=== PATIENT | male | born 1940 | race Caucasian/White ===

== ENCOUNTER 2019-03-16 06:56 | Inpatient (IN) ==
--- NOTE | 2019-03-11 13:33 | Anesthesiology Consultation ---
Date of Service March 11, 2019 Assessment & Plan (1) Encounter for pre-operative examination: Chart Review Chart Review: Acceptable Risk for Surgery and Patient seen in Pre Admission Testing Teaching & Discussion Instructed NPO after midnight before surgery, except medications with 15 cc of water. Medication instructions provided according to the PAT guidelines. 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 CURRENTLY NOT ON ANY MEDICATIONS Exercise / Class Metabolic Activity II 4-5 Yardwork/Stairs/Walk up hill (Denies CP and SOB with stairs) Past Surgical History Surgical History H/O esophagogastroduodenoscopy History of herniorrhaphy Past Anesthesia History No Hx of Anesthesia Complications and No Family Hx of Anesthesia Complications HAS NEVER HAD GA--HERNIA REPAIR WAS LOCAL ANESTHESIA ONLY, EGD WITH SEDATION. History of PONV No Hx of PONV and No Hx of Motion Sickness Social History Smoking Status: Former smoker tobacco type: cigarettes Smoking cigarettes per day: "SMOKED A TEEN" Do You Dip or Chew Tobacco: No Hx Alcohol Use: No Alcohol Intake Frequency Comment: 0 Hx Substance Use: No substance use type: does not use Review of Systems Pt denies any recent chest pain, shortness of breath, palpitations, fever or URI. Mild occ cough at baseline. Physical Exam Vital Signs BP: 163/80 (PCP monitoring BP) P: 72bpm SPO2: 96% RA T: 97.8 F R: 16 Constitutional + obese ENMT Mouth: + poor dentition (several broken all around mouth, several front upper); no dental restorations and no loose teeth Thyromental Distance: > or= 3.5 Finger Breadths (3.5) Mallampati Class: I Neck + short neck; neck extension not limited Respiratory normal respiratory effort Auscultation: lungs clear to auscultation bilaterally Cardiovascular Rate/Rhythm: regular rate and regular rhythm Heart Sounds: no murmur Vessels: no carotid bruit Extremities: no edema Testing Electrocardiogram Date: 03/11/19 Findings: + NSR @ (67) Chest X-Ray Date: 03/11/19 Findings: + NAD Laboratory Results 03/11/19 13:45 03/11/19 13:45 Blood Type O Positive 03/11/19 13:45 Antibody Screen NEGATIVE 03/11/19 13:45 *surgeon made aware of elevated glucose (no known h/o DM)
--- NOTE | 2019-03-11 14:08 | XRay Report ---
XR chest Pre-admission PA/Lat CLINICAL HISTORY: pat COMPARISON STUDY: No previous studies for comparison. FINDINGS: The bones soft tissues and hemidiaphragms are normal. The cardiomediastinal silhouette is n ormal. The lungs are clear. The pulmonary vasculature is normal. IMPRESSION: Negative chest. The above report was generated using voice recognition software. It may contain grammatical, syntax or spelling errors. Electronically signed by: Donn Harrell M.D. 03/11/2019 2:07 PM
[2019-03-11 14:44] LABS: Basophils # (auto) 0.03 K/uL (0-0.2); Basophils % (auto) 0.4 %; Eosinophils # (auto) 0.16 K/uL (0-0.5); Eosinophils % (auto) 2.1 %; Hematocrit (blood only) 40.9 % (42-52); Hemoglobin 14.2 g/dL (14.0-18.0); Immature Granulocytes # (auto) 0.02 K/uL (0.00-0.02); Immature Granulocytes % (auto) 0.3 %; Lymphocytes # (auto) 1.98 K/uL (1.2-3.4); Lymphocytes % (auto) 26.2 %; Mean Corpuscular Hgb Conc 34.7 g/dL (32-36); Mean Corpuscular Volume 92.5 fL (80-100); Mean Platelet Volume 10.2 fL (7.4-10.4); Monocytes % (auto) 7.9 %; Neutrophils # (auto) 4.76 K/uL (1.4-6.5); Neutrophils % (auto) 63.1 %; Platelet Count 156 K/uL (130-400); RDW Coefficient of Variation 13.7 % (11.5-14.5); RDW Standard Deviation 46.2 fL (36.4-46.3); Red Blood Count 4.42 M/uL (4.7-6.1); White Blood Count 7.55 K/uL (4.8-10.8)
[2019-03-11 15:02] LABS: BUN Creatinine Ratio 15.8 (10-20); Calcium 9.3 mg/dl (8.5-10.1); Creatinine Clr Calc Pharmacy 65.9 ml/min; Est GFR (African American) 79.3; Est GFR (Non-African American) 68.4; Potassium 4.3 mmol/L (3.5-5.1)
[~2019-03-16 06:56] MED LIST: LR 15ML/HR IV SCH
--- OUTSIDE RECORDS SUMMARY | 2019-03-16 07:00 | External Medical Summary | Continuity of Care Document ---
:1940 Author Name Anthony Palomo, Provider Address Unavailable Unavailable , Care Team Providers Name Role Phone Faustino Yang M.D. 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 Sta rt: 03-Mar-2019 Refills: 0 Neomycin Sulfate 500 MG Oral Tablet; Matt e two tablets at 2:00, 4:00 and 10:00 the day before surgery Dewey Yang Start: 03-Mar-2019 Quantity: 6 Refills: 0 Procedures History of Hernia Repair Status: Complet ed Immunizations Immunizations not documented Family History Mother No pertinent family history (V49.89) (Z78.9) Status: Active Father No pertinent family history (V49.89) (Z78.9) Status: Active Social History - Smoking Status Never smoker Plan of Treatment Planned Encounters Appointment; Faustino Yang M.D. Start: 16-Mar-2019 7 :15 Request Planned Observations Planned Goals not documented Results No Known Results Results not documented Vital Signs 03-Mar-2019 8:39 Systolic 164 mm[Hg] Diastolic 62 mm[Hg] Respiration 20 /min Encounters Appointment; Faustino Yang M.D. 03-Mar-2019 8:40 Encounter Diagnosis: Problem not documented Appointment; Faustino Yang M.D. 15-Feb-2019 14:10 Encounter Diagnosis: Problem not documented Appointment; Faustino Yang M.D. 22-Jan-2019 10:40 Encounter Diagnosis: Problem not documented Appointment; Faustino Yang M.D. 20-Jan-2019 10:50 Encounter Diagnosis: Problem not documented Appointment; Faustino Yang M.D. 16-Mar-2019 7:15 Encounter Diagnosis: Problem not documented
--- NOTE | 2019-03-16 08:13 | History & Physical Bridge Note ---
Date of Service March 16, 2019 History & Physical Bridge Note I have examined the patient, reviewed the History & Physical and in the interval since the performance of the History & Physical I have noted the following changes of clinical significance: no changes noted SO at bedside all questions answered
[2019-03-16] MEDS ORDERED: PROPOFOL IV EMULSION 10 MG/ML 20 ML VIAL IV ONE (08:15)
[2019-03-16] MEDS ORDERED: GLYCOPYRROLATE 0.2 MG/ML VIAL ONE ×2 (08:15→11:14)
[2019-03-16] MEDS ORDERED: ONDANSETRON INJ 2 MG/ML 2 ML VIAL ONE (08:15)
[2019-03-16] MEDS ORDERED: NEOSTIGMINE METHYLSULFATE 5 MG/5 ML SYR ONE (08:15)
[2019-03-16] MEDS ORDERED: DEXAMETHASONE SOD INJ 4 MG/ML VIAL ONE (08:15)
[2019-03-16] MEDS ORDERED: LIDOCAINE HCL 2% 2 ML VIAL/AMP(20MG/ML) INFIL ONE (08:15)
[2019-03-16] MEDS ORDERED: ROCURONIUM BROMIDE 10 MG/ML 5 ML VIAL ONE (08:15)
[2019-03-16] MEDS ORDERED: MIDAZOLAM HCL 1 MG/ML 2ML VIAL ONE (08:16)
[2019-03-16] MEDS ORDERED: fentaNYL citrate 100 MCG/2 ML VIAL ONE ×2 (08:16→09:02)
[2019-03-16] MEDS ORDERED: BUPIVACAINE 0.5 % 5 MG/1 ML MPF 30ML VIAL ONE (08:18)
[2019-03-16] MEDS ORDERED: HYDROmorphone INJ 2 MG/ML SYR/VIAL IV PRN (08:33)
[2019-03-16] MEDS ORDERED: fentaNYL citrate 100 MCG/2 ML VIAL IV PRN (08:33)
[2019-03-16] MEDS ORDERED: ePHEDrine sulfate 50 MG/ML AMP IV PRN (08:33)
[2019-03-16] MEDS ORDERED: KETOROLAC 30 MG/ML VIAL IV PRN (08:33)
[2019-03-16] MEDS ORDERED: ATROPINE SULFATE 0.1 MG/ML 10ML SYR IV PRN (08:33)
[2019-03-16] MEDS ORDERED: DEXAMETHASONE SOD INJ 4 MG/ML VIAL IV PRN (08:33)
[2019-03-16] MEDS ORDERED: ONDANSETRON INJ 2 MG/ML 2 ML VIAL IV PRN ×2 (08:33→13:14)
[2019-03-16] MEDS ORDERED: cefOXitin 2,000 MG in DEXTROSE 5% 50 ML IV SCH (09:15)
[2019-03-16] MEDS ORDERED: CISATRACURIUM BESYLATE IV SOLN 2 MG/ML 10 ML VIAL IV ONE (09:59)
[2019-03-16] MEDS ORDERED: ALBUMIN HUMAN 5% 12.5 GM/250 ML VIAL IV ONE (10:55)
[2019-03-16] MEDS ORDERED: HYDROmorphone INJ 2 MG/ML SYR/VIAL ONE (11:12)
--- NOTE | 2019-03-16 11:25 | Post Operative Brief Note ---
Immediate Post Op Note v1 Date of Surgery March 16, 2019 Pre & Post Diagnosis Operation Date: 03/16/19 08:40 Pre-Op Diagnosis: Entero-colonic Fistula Post-Op Diagnosis: Entero-colonic Fistula Procedure Operation Date: 03/16/19 08:40 Actual Procedures p Laparoscopic-Assisted Resection Enterocutaneous Fistula, Extensive lysis of a carolsihanane Yang MD Surgeon Faustino Yang MD Promotions Representative aretha mccormack Estimated Blood Loss 200 Findings Consistent with Post-Op Diagnosis Drains Magan Drain (19 magan drain), Bosch Catheter and Alexis Drain (1/2 inch)
--- NOTE | 2019-03-16 11:49 | Operative Report ---
Post Operative Report Pre & Post Diagnosis Operation Date: 03/16/19 08:40 Pre-Op Diagnosis: Entero-colonic Fistula Post-Op Diagnosis: Entero-colonic Fistula Procedure Operation Date: 03/16/19 08:40 Actual Procedures p Laparoscopic-Assisted Resection Enterocutaneous Fistula, Extensive lysis of adhesions - Faustino Yang MD This 78-year-old gentleman has had about 3 to 4-month history of drainage of purulent material from her umbilical area at times is associated with some passage of air he denies any dysuria was worked up by CAT scan and found to have inflammation of the sigmoid colon with possibly extension down towards the bladder and inferior umbilical area question of a radical cyst was raised when I saw him 2 months ago the patient really did not have any changes in bowel habits he was always complaining of some pain in the left side had a inguinal hernia repair in the past and not had colonoscopy I did obtain a fistulogram which showed contrast from the umbilicus going into sigmoid colon a presumptive diagnosis was 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 with secondary inflammatory response possibly onto the bladder we did not pursue colonoscopy since with the air and drainage from the umbilical area and felt that this possibly was a contraindication from the GI service Today under general anesthesia the patient was placed in supine position a Bosch catheter was inserted systemic antibiotics given patient was identified and a timeout was had made a small incision supraumbilically enough to place a Veress needle followed by CO2 followed by 5 mm trocar block achieved from the trocar entry site below the umbilical area towards the symphysis pubis there was hard mass that was nonfluctuant suspicious for chronic inflammation of the rectus then I went down into what I can see the sigmoid colon stuck to this mass there was no evidence of any small bowel attachments to any of this area and there was no significant edema that I can appreciate cul-de-sac at this point I felt the best avenue to be to convert to an open procedure which we did make a supra pubic incision deepened through subcutaneous tissue on the preperitoneal area w ith 5 some indurated tissue from the umbilical slide going towards the bladder we freed that circumferentially from the posterior rectus sheath and anterior to the level of the umbilicus actually we inverted the umbilicus to resect this area from method into the granulation tissue and we followed this down onto where it expands around to the bladder dome and also the sigmoid colon in the area Bookwalter retractor was then inserted we divided the white line of Toldt on the left side mobilized the sigmoid colon to one area that we could see the start of the diverticular problem the sigmoid colon down towards the rectum was stuck to the dome of the bladder very hard indurated tissue most of the time we did with blunt dissection occasionally sharp dissection as fluid we freed this up we then were able to identify that abdominal bilateral posteriorly there was an opening with some evidence that we were in the bladder and also the sigmoid which showed nephroscopy a diverticulum we freed these 2 avenues up the indurated tissue around that area of which was the bladder musculature was sent for frozen section raised the possibility that this could be a malignant rectal cyst was hard to tell what our findings at this time whether or not this was a perforated sigmoid diverticulum that gone to the bladder or vice versa and said that we completely mobilized the proximal sigmoid down to the rectum dividing the mesentery with 22 oh silks completely we identified the left ureter avoided placed on a vessel loop we then resected proximally at the takeoff of the sigmoid with a NABIL stapler and we resected the sigmoid right on top of the rectum I placed a right angle clamp with our findings we then asked urology to command and evaluate the bladder for possible resection since but palpated area once we remove the sigmoid colon was extending about four 5 cm into the dome of the bladder and we can palpate her through Dr. Whitman came in and resected the area of the bladder and they will dictate that portion while we are waiting for the resection of the bladder we did a side and anastomosis by first oversewn the sigmoid bladder resection approximately 3-0 interrupted silk suture and so this to the end of the rectum with 3-0 silk are layer 3-0 chromic limit in her layer anastomosis was patent. Throughout the procedure we had moderate amount of oozing especially due to this chronic inflammation down the pelvis. We lost about 200 cc of blood once the bladder was resected we then closed the wound by first placing a Magan drain Prostaphlin left lower quadrant down the cul-de-sac attached to skin edge with 2-0 silk lower midline incision was closed with 905 chromic for the peritoneum and posterior rectus and interrupted #1 PDS [id number] for the anterior rectus 5/8 of an inch [place] subcutaneously touch the individual silk and kira for skin edges the umbilical area was left pretty much of unattended dressing was applied procedure was tolerated well by the patient taken recovery in good condition Sommer MCCORMACK present throughout the procedure and help with retraction exposure wound closure Surgeon Faustino Yang MD Logistics Administrator aretha mccormack Estimated Blood Loss 200 Findings Consistent with Post-Op Diagnosis Specimens sigmoid colon, urinary bladder Description of Procedure merda I attest to the content of the Intraoperative Record and any orders documented therein. Any exceptions are noted below.
--- NOTE | 2019-03-16 13:06 | Operative Report ---
Post Operative Report Pre & Post Diagnosis Operation Date: 03/16/19 08:40 Pre-Op Diagnosis: Entero-colonic Fistula Post-Op Diagnosis: Entero-colonic Fistula Procedure Operation Date: 03/16/19 08:40 Actual Procedures s Laparoscopy(Not Applicable) - Faustino Yang MD p open sigmoid resection (Not Applicable) - Faustino Yang MD s excision of urachal cyst/partial cystectomy by Dr Whitman(Not Applicable) - Jose Whitman MD Surgeon Jeremiah Whitman MD Oil Field Worker aretha mccormack Estimated Blood Loss 200 Findings Consistent with Post-Op Diagnosis Specimens Dome of bladder Description of Procedure I was called into the room by Dr. Yang secondary to an abnormal mass in the posterior aspect of the bladder and concern for urachal remnant. Of note, the patient previously had purulent drainage per umbilicus with a fistulagram showing communication to the sigmoid colon. As he was undergoing a sigmoid resection as well as fistulectomy, it was noted that there was a severely indurated and thickened area on the upper posterior aspect of the bladder adjacent to the dome. Given the overall findings this raise concern for possible urachal remnant with subsequent sigmoid fistulization to an open urachal sinus or cyst. After the general surgery team completed their portion of the resection and anastomosis, I entered the room and resected the indurated area of the bladder. I opened it anteriorly as this felt to be the area with the least in duration I inspected internally seeing no mass or protruding element into the bladder, and in turn it guided my resection of the dome of the bladder by palpating the area of induration and carving underneath it with a Bovie electrocautery. After confirming good hemostasis, I closed the bladder in 2 layers utilizing 3-0 chromic for mucosal closure followed by an imbricated 2-0 Vicryl to reapproximate the muscle. A Bosch catheter was left in place and will be left in place for 10 days. He will have a cystogram prior to removal of the catheter. He was stable for the remaining portion of the general surgery case. I attest to the content of the Intraoperative Record and any orders documented therein. Any exceptions are noted below.
[2019-03-16] MEDS ORDERED: NALOXONE HCL 0.4 MG/1 ML VIAL/CARP IV PRN (13:14)
--- NOTE | 2019-03-16 13:15 | Anesthesiology Progress Note ---
Date of Service March 16, 2019 Anesthesia Post Procedure Vital Signs Vital Signs: Temp Pulse Pulse Resp BP Pulse Ox 03/16/19 12:45 58 L 17 169/76 H 97 03/16/19 12:35 36.5 C 62 18 175/81 H 96 03/16/19 12:25 56 L 19 179/76 H 96 03/16/19 12:15 54 L 19 177/79 H 97 03/16/19 12:05 57 L 20 177/82 H 97 03/16/19 11:55 58 L 21 177/81 H 97 03/16/19 11:48 36.9 C 64 22 183/82 H 98 03/16/19 07:32 36.6 C 67 16 173/75 H 97 Pain Intensity Abdomen: Pain Intensity: 3 Transfer of Care Handoff Completed per policy Notes Mental Status: alert / awake / arousable and participated in evaluation Patient Amnestic to Procedure: Yes Nausea / Vomiting: adequately controlled Pain: adequately controlled Airway Patency, RR, SpO2: stable & adequate BP & HR: stable & adequate Hydration State: stable & adequate Anesthetic Complications: no major complications apparent
[2019-03-16] MEDS: SODIUM CHLORIDE 0.9% 1000ML 1,000 ML IV SCH (14:00)
[2019-03-16 14:19] LABS: INR 1.1 (0.9-1.1); Prothrombin Time 11.1 Seconds (9.0-12.0)
[2019-03-16] MEDS: LACTATED RINGER'S 1,000 ML IV SCH ×2 (14:21→21:26)
[2019-03-16] MEDS: MoRPHine SULFATE PCA 50 MG/50ML IV PRN ×2 (14:21→23:00)
[2019-03-16] MEDS: ACETAMINOPHEN 1,000 MG/100 ML VIAL IV SCH ×2 (14:23→22:33)
[2019-03-16] MEDS: cefOXitin 2,000 MG in DEXTROSE 5% 50 ML IV SCH ×2 (14:48→21:25)
[2019-03-16] MEDS: HEPARIN SOD 5,000 UNIT/0.5 ML VIAL SQ SCH (21:35)
[2019-03-17] MEDS: cefOXitin 2,000 MG in DEXTROSE 5% 50 ML IV SCH ×2 (03:18→08:50)
[2019-03-17 05:49] LABS: Hematocrit (blood only) 34.9 % (42-52); Hemoglobin 12.1 g/dL (14.0-18.0); Immature Granulocytes # (auto) 0.03 K/uL (0.00-0.02); Immature Granulocytes % (auto) 0.2 %; Lymphocytes # (auto) 1.44 K/uL (1.2-3.4); Lymphocytes % (auto) 10.5 %; Mean Corpuscular Hgb Conc 34.7 g/dL (32-36); Mean Corpuscular Volume 90.9 fL (80-100); Monocytes # (auto) 1.16 K/uL (0.11-0.59); Monocytes % (auto) 8.4 %; Neutrophils # (auto) 11.11 K/uL (1.4-6.5); Neutrophils % (auto) 80.9 %; Platelet Count 143 K/uL (130-400); RDW Coefficient of Variation 13.7 % (11.5-14.5); RDW Standard Deviation 45.2 fL (36.4-46.3); Red Blood Count 3.84 M/uL (4.7-6.1); White Blood Count 13.74 K/uL (4.8-10.8)
[2019-03-17] MEDS: LACTATED RINGER'S 1,000 ML IV SCH ×3 (06:11→21:32)
[2019-03-17] MEDS: HEPARIN SOD 5,000 UNIT/0.5 ML VIAL SQ SCH ×3 (06:11→21:16)
[2019-03-17] MEDS: ACETAMINOPHEN 1,000 MG/100 ML VIAL IV SCH ×3 (06:12→21:11)
[2019-03-17 06:34] LABS: BUN Creatinine Ratio 10.9 (10-20); Calcium 8.5 mg/dl (8.5-10.1); Creatinine Clr Calc Pharmacy 46.6 ml/min; Est GFR (Non-African American) 46.6
--- NOTE | 2019-03-17 07:21 | Surgery Progress Note ---
Date of Service March 17, 2019 Assessment & Plan (1) Diverticula of colon: will d/c ng tube increase activity callaway cath to be left in for 10 days and discussed with pt start clear liquids Present on Admission?: Yes Subjective alert coherent in no distress Physical Exam Physical Exam: intraop findings discussed with pt including having Urology service come in and resect part of bladder abd soft dressing intact serous slight bloody drainage from mary drain urine clear Results & Data Vital Signs (Past 12 Hours) Vital Signs Temp Pulse Resp BP BP Pulse Ox 03/17/19 03:03 36.9 C 63 15 133/71 94 03/16/19 23:45 36.8 C 66 16 151/74 H 95 03/16/19 21:04 36.5 C 70 18 154/78 H 93 03/16/19 19:47 36.5 C 67 17 151/88 H 95 03/16/19 19:20 96
--- NOTE | 2019-03-17 08:33 | Urology Progress Note ---
Date of Service March 17, 2019 Assessment & Plan (1) Urachal remnant: Postop day #1 status post partial cystectomy for suspected urachal remnant Urine is cleared appropriately Feels well Discussed intraoperative findings and the operative procedure Plan to leave Bosch catheter for 10 days with cystogram prior to removalI believe this is Rashid been arranged in my office is communicated with the patient's , we will confirm prior to discharge home Subjective feels well annoyed by the NG tube, but pain is well controlled Review of Systems Review of Systems: All systems reviewed & are unremarkable except as noted in HPI & below Physical Exam Physical Exam: NAD AAOX3 NG in place ABDOUL - serosang - minimal in the bulb Urine clear incisions dressed Results & Data Vital Signs (Past 12 Hours) Vital Signs Temp Pulse Resp BP BP Pulse Ox 03/17/19 07:17 36.8 C 61 18 139/70 93 03/17/19 03:03 36.9 C 63 15 133/71 94 03/16/19 23:45 36.8 C 66 16 151/74 H 95 03/16/19 21:04 36.5 C 70 18 154/78 H 93
--- NOTE | 2019-03-17 09:52 | Anesthesiology Progress Note ---
Date of Service March 17, 2019 Anesthesia Post Procedure Vital Signs Vital Signs: Temp Pulse Pulse Resp BP BP Pulse Ox 03/17/19 07:17 36.8 C 61 18 139/70 93 03/17/19 03:03 36.9 C 63 15 133/71 94 03/16/19 23:45 36.8 C 66 16 151/74 H 95 03/16/19 21:04 36.5 C 70 18 154/78 H 93 03/16/19 19:47 36.5 C 67 17 151/88 H 95 03/16/19 19:20 96 03/16/19 16:49 36.4 C L 18 165/77 H 98 03/16/19 16:15 173/81 H 03/16/19 15:00 56 L 16 170/78 H 98 03/16/19 14:05 36.4 C L 56 L 18 161/78 H 98 03/16/19 13:35 36.5 C 56 L 16 162/82 H 98 03/16/19 13:05 36.6 C 57 L 16 160/77 H 96 03/16/19 12:45 58 L 17 169/76 H 97 03/16/19 12:35 36.5 C 62 18 175/81 H 96 03/16/19 12:25 56 L 19 179/76 H 96 03/16/19 12:15 54 L 19 177/79 H 97 03/16/19 12:05 57 L 20 177/82 H 97 03/16/19 11:55 58 L 21 177/81 H 97 03/16/19 11:48 36.9 C 64 22 183/82 H 98 Pain Intensity Abdomen: Pain Intensity: 3 Notes Mental Status: alert / awake / arousable and participated in evaluation Patient Amnestic to Procedure: Yes Nausea / Vomiting: adequately controlled Pain: adequately controlled Airway Patency, RR, SpO2: stable & adequate BP & HR: stable & adequate Hydration State: stable & adequate Anesthetic Complications: no major complications apparent and Pt Satisfied with anesthetic care
[2019-03-17] MEDS: SODIUM CHLORIDE 0.9% 1000ML 1,000 ML IV SCH (14:14)
[2019-03-18] MEDS: LACTATED RINGER'S 1,000 ML IV SCH ×2 (04:48→14:54)
[2019-03-18] MEDS: ACETAMINOPHEN 1,000 MG/100 ML VIAL IV SCH ×3 (05:13→21:59)
[2019-03-18] MEDS: HEPARIN SOD 5,000 UNIT/0.5 ML VIAL SQ SCH ×3 (05:14→21:58)
[2019-03-18 05:52] LABS: Basophils # (auto) 0.02 K/uL (0-0.2); Basophils % (auto) 0.2 %; Eosinophils # (auto) 0.09 K/uL (0-0.5); Eosinophils % (auto) 0.9 %; Hematocrit (blood only) 34.6 % (42-52); Hemoglobin 12.1 g/dL (14.0-18.0); Immature Granulocytes # (auto) 0.02 K/uL (0.00-0.02); Immature Granulocytes % (auto) 0.2 %; Lymphocytes # (auto) 1.25 K/uL (1.2-3.4); Mean Corpuscular Volume 91.3 fL (80-100); Monocytes # (auto) 0.96 K/uL (0.11-0.59); Monocytes % (auto) 9.2 %; Neutrophils # (auto) 8.11 K/uL (1.4-6.5); Neutrophils % (auto) 77.5 %; Platelet Count 134 K/uL (130-400); RDW Coefficient of Variation 13.8 % (11.5-14.5); RDW Standard Deviation 45.5 fL (36.4-46.3); Red Blood Count 3.79 M/uL (4.7-6.1); White Blood Count 10.45 K/uL (4.8-10.8)
[2019-03-18 06:28] LABS: BUN Creatinine Ratio 11.2 (10-20); Calcium 8.5 mg/dl (8.5-10.1); Creatinine Clr Calc Pharmacy 64.1 ml/min; Est GFR (African American) 79.3; Est GFR (Non-African American) 68.4
--- NOTE | 2019-03-18 06:53 | Surgery Progress Note ---
Date of Service March 18, 2019 Assessment & Plan (1) Diverticula of colon: 03/18/18 2 pod will dec iv to 80cc/hr keep diet as is increase activity lab noted will d/c ng tube increase activity callaway cath to be left in for 10 days and discussed with pt start clear liquids Subjective no complaints, had good night sleep last night, minimal oral intake Physical Exam Physical Exam: alert coherent in no distress well hydrated abd softly distended dressing dry minimal Magan drainage i and o noted Results & Data Vital Signs (Past 12 Hours) Vital Signs Temp Pulse Resp BP Pulse Ox 03/17/19 23:46 36.7 C 62 15 160/75 H 95
[2019-03-18] MEDS: SODIUM CHLORIDE 0.9% 1000ML 1,000 ML IV SCH (14:36)
[2019-03-19] MEDS: LACTATED RINGER'S 1,000 ML IV SCH ×2 (02:06→19:01)
[2019-03-19] MEDS: ACETAMINOPHEN 1,000 MG/100 ML VIAL IV SCH ×3 (05:56→22:02)
[2019-03-19] MEDS: HEPARIN SOD 5,000 UNIT/0.5 ML VIAL SQ SCH ×3 (05:57→22:01)
[2019-03-19 07:23] LABS: Basophils # (auto) 0.02 K/uL (0-0.2); Basophils % (auto) 0.3 %; Eosinophils # (auto) 0.26 K/uL (0-0.5); Eosinophils % (auto) 3.4 %; Hematocrit (blood only) 33.9 % (42-52); Hemoglobin 11.7 g/dL (14.0-18.0); Immature Granulocytes # (auto) 0.02 K/uL (0.00-0.02); Immature Granulocytes % (auto) 0.3 %; Lymphocytes # (auto) 1.59 K/uL (1.2-3.4); Lymphocytes % (auto) 20.6 %; Mean Corpuscular Hgb Conc 34.5 g/dL (32-36); Mean Corpuscular Volume 91.9 fL (80-100); Mean Platelet Volume 9.9 fL (7.4-10.4); Monocytes # (auto) 0.66 K/uL (0.11-0.59); Monocytes % (auto) 8.6 %; Neutrophils # (auto) 5.15 K/uL (1.4-6.5); Neutrophils % (auto) 66.8 %; Platelet Count 147 K/uL (130-400); RDW Coefficient of Variation 13.7 % (11.5-14.5); RDW Standard Deviation 46.3 fL (36.4-46.3); Red Blood Count 3.69 M/uL (4.7-6.1)
--- NOTE | 2019-03-19 07:48 | Surgery Progress Note ---
Date of Service March 19, 2019 Assessment & Plan (1) Diverticula of colon: 03/19/19 3rd POD rodrigo from sub cut removed leave mary drain in and send home with pt will keep until pt has voiding cystogram in one week path noted and discussed with pt will advance diet keep here until pt as bm told him another surgeon from our group will check on him tomorrow 03/18/18 2 pod will dec iv to 80cc/hr keep diet as is increase activity lab noted will d/c ng tube increase activity callaway cath to be left in for 10 days and discussed with pt start clear liquids Subjective no complaints, had good night sleep last night, minimal oral intake 03/19/19 no complaints minimal discomfort passing flatus tolerated clears Physical Exam Physical Exam: alert coherent abd soft incision intact minimal drainage from sub cut rodrigo mary drainage serous Results & Data Vital Signs (Past 12 Hours) Vital Signs Temp Pulse Resp BP Pulse Ox 03/18/19 23:19 36.7 C 72 16 155/78 H 95
[2019-03-19 07:52] LABS: BUN Creatinine Ratio 10.6 (10-20); Calcium 8.5 mg/dl (8.5-10.1); Creatinine Clr Calc Pharmacy 70.1 ml/min; Est GFR (African American) 88.5; Est GFR (Non-African American) 76.4; Potassium 3.9 mmol/L (3.5-5.1)
--- NOTE | 2019-03-19 09:35 | Urology Progress Note ---
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 Progressing appropriately. Likely DC tomorrow per primary team. Continue Bosch. Outpatient URO follow up including cystogram has been arranged. Subjective 78YO male POD #3 s/p excision of urachal cyst. Patient reports feeling well, is up in chair upon exam. Minimal bother from Bosch. No hematuria. Incision pain with movement, reports pain is well controlled with medication. No fever/chills. No nausea/vomiting. Tolerating liquids, slowly advancing diet. Review of Systems Review of Systems: All systems reviewed & are unremarkable except as noted in HPI & below Physical Exam Physical Exam: WN/WD NAD. Resp effort normal. No JVD. Abd soft/nontender. : Bosch in place draining clear yellow urine. A&O x 3, appropriate affect. Results & Data Vital Signs (Past 12 Hours) Vital Signs Temp Pulse Resp BP Pulse Ox 03/19/19 08:20 36.7 C 62 22 153/82 H 95 03/18/19 23:19 36.7 C 72 16 155/78 H 95
--- NOTE | 2019-03-19 09:46 | Urology Progress Note ---
Date of Service March 19, 2019 Assessment & Plan (1) Urachal remnant: s.p partial cystectomy -path - abscess within the urachal remnant - no cancer - set for cystogram on 03/26 - plan for callaway removal after the cystogram Subjective Patient continues to recover very well Limited drain output, clear urine No abdominal pain BM last night Review of Systems Review of Systems: All systems reviewed & are unremarkable except as noted in HPI & below Physical Exam Physical Exam: incisions appropriate urine clear Results & Data Vital Signs (Past 12 Hours) Vital Signs Temp Pulse Resp BP Pulse Ox 03/19/19 08:20 36.7 C 62 22 153/82 H 95 03/18/19 23:19 36.7 C 72 16 155/78 H 95
[2019-03-19] MEDS ORDERED: ACETAMINOPHEN 325 MG TAB PO PRN (13:27)
[2019-03-19] MEDS: SODIUM CHLORIDE 0.9% 1000ML 1,000 ML IV SCH (14:19)
[2019-03-19 15:33] VITALS: TEMP 97.9
[2019-03-20] MEDS: HEPARIN SOD 5,000 UNIT/0.5 ML VIAL SQ SCH (05:58)
[2019-03-20] MEDS: ACETAMINOPHEN 1,000 MG/100 ML VIAL IV SCH (05:58)
--- NOTE | 2019-03-20 06:39 | Progress Note ---
Date of Service March 20, 2019 Assessment & Plan (1) Diverticula of colon: will d/c home today- keep callaway leave drain- to come in to office next Fri Subjective vitals stable, marni diet, bowels moving wants to go home Physical Exam Physical Exam: awake , alert abd soft, good bowel sounds drain in place, callaway in place Results & Data Vital Signs (Past 12 Hours) Vital Signs Temp Pulse Resp BP Pulse Ox 03/19/19 23:15 36.6 C 65 16 142/79 H 96
[2019-03-20 07:01] LABS: Basophils # (auto) 0.03 K/uL (0-0.2); Basophils % (auto) 0.5 %; Eosinophils # (auto) 0.35 K/uL (0-0.5); Eosinophils % (auto) 5.6 %; Hematocrit (blood only) 33.8 % (42-52); Hemoglobin 11.4 g/dL (14.0-18.0); Immature Granulocytes # (auto) 0.02 K/uL (0.00-0.02); Immature Granulocytes % (auto) 0.3 %; Lymphocytes # (auto) 1.83 K/uL (1.2-3.4); Mean Corpuscular Hgb Conc 33.7 g/dL (32-36); Mean Corpuscular Volume 93.1 fL (80-100); Mean Platelet Volume 10.2 fL (7.4-10.4); Monocytes # (auto) 0.36 K/uL (0.11-0.59); Monocytes % (auto) 5.7 %; Neutrophils # (auto) 3.71 K/uL (1.4-6.5); Neutrophils % (auto) 58.9 %; Platelet Count 158 K/uL (130-400); RDW Coefficient of Variation 13.8 % (11.5-14.5); Red Blood Count 3.63 M/uL (4.7-6.1)
[2019-03-20 07:40] VITALS: PULSE 56; O2SAT 94
[2019-03-20 07:46] LABS: BUN Creatinine Ratio 11.9 (10-20); Calcium 8.4 mg/dl (8.5-10.1); Creatinine Clr Calc Pharmacy 78.4 ml/min; Est GFR (African American) 96.7; Est GFR (Non-African American) 83.5; Potassium 3.8 mmol/L (3.5-5.1)
[2019-03-20 09:24] VITALS: BP 142/79
--- NOTE | 2019-03-20 09:42 | Urology Progress Note ---
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 Continues to do very well Has a cystogram scheduled for Friday, DC of catheter after the cystogram presuming no leak DC home today Subjective Continues to do extremely well from a subjective standpoint Catheter not bothering him Ambulatory Bowel function has returned Review of Systems Review of Systems: All systems reviewed & are unremarkable except as noted in HPI & below Physical Exam Physical Exam: Incisions appropriate Bosch clear Results & Data Vital Signs (Past 12 Hours) Vital Signs Temp Pulse Resp BP BP Pulse Ox 03/20/19 09:16 36.6 C 56 L 16 142/79 H 157/79 H 94 03/20/19 07:09 36.6 C 56 L 16 157/79 H 94 03/19/19 23:15 36.6 C 65 16 142/79 H 96
--- NOTE | 2019-03-31 01:35 | Discharge Summary ---
PRIMARY DISCHARGE DIAGNOSES: 1. Diverticulitis with perforation and enterocutaneous fistula. 2. Urachal abscess. CONSULTATIONS: Urology, Dr. Whitman for intraoperative findings of urachal abscess. PROCEDURES: Laparoscopic resection of enterocutaneous fistula with lysis of adhesions by Dr. Yang and excision of urachal cyst and partial cystectomy by Dr. Whitman. 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 We began with laparoscopy, lysis of adhesions, identified the sigmoid colon adherent to the anterior abdominal wall. We converted the procedure to open. Also at that time identify what appeared to be an urachal remnant with a possible mass that returned as a urachal abscess. Dr. Whitman completed excision of the urachal cyst and partial cystectomy. The procedure was well tolerated, he was transferred to surgical floor. Nasogastric tube was removed on postoperative day 1. Callaway catheter is to be left for 10 days following partial cystectomy. He was started on clear liquids. He remained stable on day 2 and began advancing diet on postoperative day 3. By day 4, he was having bowel movements. He was tolerating a regular diet. He was stable for discharge home with a Magan drain and callaway catheter until cystogram is completed in 1 week. DISCHARGE INSTRUCTIONS: Discharge home. Follow up with Dr. Yang in 1 week. Also has cystogram in 1 week and follow-up with Dr. Whitman. DISCHARGE MEDICATIONS: He can take OTC analgesics, no additional medications were necessary at time of discharge and he does not have any home meds. [facility]
== END 2019-03-20 10:57 | disposition home or self-care (01) | DRG 330 ==
LOC: ASU 06:56 → 3N 11:38